=== PATIENT | female | born 1995 | race Caucasian/White ===

== ENCOUNTER 2016-09-10 21:53 | Emergency (ER) | payer MEDICAID ==
[~2016-09-10] VITALS: Ht 157.5 cm; Wt 83.6 kg
[~2016-09-10 21:53] MED LIST: ALBU90AE INH; DOCU-30 PO; FOLI1TAB47 PO; IBUP-1222 PO; MOOD STABILIZER; OXYC5CAP4 PO; PEDI18TA2 PO; PNV11TAB5 PO
[2016-09-10 21:56] VITALS: BP 119/80
[2016-09-10] MEDS ORDERED: IBUPROFEN 200 MG TABLET ONE (22:30)
[2016-09-10] MEDS ORDERED: IBUPROFEN 200 MG TABLET PO ONE (22:30)
== END 2016-09-10 23:33 | disposition home or self-care (01) ==
LOC: ED 23:08
DX: G89.29 Other chronic pain (principal); M54.6 Pain in thoracic spine
CPT/HCPCS: 72072

== ENCOUNTER 2016-09-25 22:23 | Emergency (ER) | payer MEDICAID ==
[~2016-09-25] VITALS: Ht 157.5 cm; Wt 83.1 kg
[2016-09-25 22:24] VITALS: BP 122/76
[2016-09-25] MEDS ORDERED: CYCLOBENZAPRINE 10 MG TABLET PO ONE (23:00)
[2016-09-25] MEDS ORDERED: KETOROLAC 30 MG/1 ML IM ONE (23:00)
[2016-09-25] MEDS ORDERED: KETOROLAC 30 MG/1 ML ONE (23:16)
[2016-09-25] MEDS ORDERED: CYCLOBENZAPRINE 10 MG TABLET ONE (23:16)
== END 2016-09-25 23:29 | disposition home or self-care (01) ==
LOC: ED 23:20
DX: M41.114 Juvenile idiopathic scoliosis, thoracic region (principal); K21.9 Gastro-esophageal reflux disease without esophagitis
CPT/HCPCS: 99283

== ENCOUNTER 2016-10-23 15:25 | Emergency (ER) | payer MEDICAID ==
[~2016-10-23] VITALS: Ht 157.5 cm; Wt 80.0 kg
[2016-10-23] MEDS ORDERED: PHENAZOPYRIDINE 200 MG TABLET ONE (15:48)
[2016-10-23] MEDS ORDERED: PHENAZOPYRIDINE 200 MG TABLET PO ONE (16:00)
[2016-10-23 16:18] LABS: HCG UR OBC PASS
[2016-10-23 17:30] VITALS: BP 116/78
== END 2016-10-23 17:38 | disposition home or self-care (01) ==
LOC: ED 17:32
DX: N30.90 Cystitis, unspecified without hematuria (principal)
CPT/HCPCS: 81001; 81025; 87086; 99284

== ENCOUNTER 2016-10-31 20:46 | Emergency (ER) | payer MEDICAID ==
[~2016-10-31] VITALS: Ht 157.5 cm; Wt 77.5 kg
[2016-10-31 21:37] LABS: PATH.CAST-FLAG NOT PRESENT; SPERM-FLAG NOT PRESENT; SRC-FLAG NOT PRESENT; XTAL-FLAG NOT PRESENT; YLC-FLAG NOT PRESENT
[2016-10-31 21:39] LABS: HCG UR OBC PASS
[2016-10-31 22:20] LABS: BLOOD UREA NITROGEN 12 mg/dL (7-18)
[2016-10-31] MEDS ORDERED: OMNIPAQUE 350 MG/ML, 100ML BOTTLE ONE (23:23)
[2016-10-31] MEDS ORDERED: SODIUM CHLORIDE FLUSH 10ML SYR IVF ONE (23:30)
[2016-10-31 23:31] VITALS: BP 108/69
== END 2016-11-01 00:16 | disposition home or self-care (01) ==
LOC: ED 11-01 00:15
DX: B37.3 Candidiasis of vulva and vagina (principal); K21.9 Gastro-esophageal reflux disease without esophagitis
CPT/HCPCS: 36415; 74177; 76830; 80048; 81001; 81025; 82040; 84703; 85025; 87086; 87210; 87491; 87591; 87808; 99285; Q9967

== ENCOUNTER 2016-11-09 08:57 | Emergency (ER) | payer MEDICAID ==
[~2016-11-09] VITALS: Ht 157.5 cm; Wt 82.0 kg
[2016-11-09] MEDS ORDERED: KETOROLAC 30 MG/1 ML IM ONE (09:30)
[2016-11-09] MEDS ORDERED: CYCLOBENZAPRINE 10 MG TABLET PO ONE (09:30)
[2016-11-09] MEDS ORDERED: KETOROLAC 30 MG/1 ML ONE (09:56)
[2016-11-09] MEDS ORDERED: CYCLOBENZAPRINE 10 MG TABLET ONE (09:58)
[2016-11-09] MEDS ORDERED: IBUPROFEN 200 MG TABLET ONE (10:03)
[2016-11-09] MEDS ORDERED: HYDROcodone/APAP 5/325 TABLET ONE (10:16)
[2016-11-09] MEDS ORDERED: IBUPROFEN 200 MG TABLET PO ONE (10:30)
[2016-11-09] MEDS ORDERED: HYDROcodone/APAP 5/325 TABLET PO ONE (10:30)
[2016-11-09 11:02] VITALS: BP 114/71
== END 2016-11-09 11:05 | disposition home or self-care (01) ==
LOC: ED 10:59
DX: S39.012A Strain of muscle, fascia and tendon of lower back, initial encounter (principal); V49.9XXA Car occupant (driver) (passenger) injured in unspecified traffic accident, initial encounter; Y93.89 Activity, other specified; Y92.89 Other specified places as the place of occurrence of the external cause; Y99.8 Other external cause status
CPT/HCPCS: 72110; 99284

== ENCOUNTER 2016-11-19 11:29 | Emergency (ER) | payer MEDICAID ==
[~2016-11-19] VITALS: Ht 157.5 cm; Wt 77.5 kg
[2016-11-19] MEDS ORDERED: ALBU1.25 NEB (11:37)
[2016-11-19] MEDS ORDERED: [UNRECOGNIZED DRUG - REMARK] (11:37)
[2016-11-19 12:51] VITALS: BP 117/74
== END 2016-11-19 12:53 | disposition home or self-care (01) ==
LOC: ED 12:47
DX: M54.6 Pain in thoracic spine (principal); K21.9 Gastro-esophageal reflux disease without esophagitis; J45.909 Unspecified asthma, uncomplicated; S20.219A Contusion of unspecified front wall of thorax, initial encounter; X58.XXXA Exposure to other specified factors, initial encounter; Y93.89 Activity, other specified; Y92.89 Other specified places as the place of occurrence of the external cause; Y99.8 Other external cause status
CPT/HCPCS: 71020; 72072; 93005; 99284

== ENCOUNTER 2017-02-23 02:31 | Emergency (ER) | payer MEDICAID ==
[~2017-02-23] VITALS: Ht 157.5 cm; Wt 79.4 kg
[~2017-02-23 02:31] MED LIST changes: +ALBU1.25 NEB; +DOCU-131 PO; -DOCU-30 PO; +OXYC5CAP2 PO; -OXYC5CAP4 PO; +[UNRECOGNIZED DRUG - REMARK]
[2017-02-23] MEDS ORDERED: ARIP5TAB13 PO (02:51)
[2017-02-23] MEDS ORDERED: ANTIDEPRESSANT PO (02:51)
[2017-02-23] MEDS ORDERED: DEXAMETHASONE 4 MG/ML, 1ML PO ONE (03:00)
[2017-02-23] MEDS ORDERED: DEXAMETHASONE 4 MG TABLET ONE (03:04)
[2017-02-23 04:55] VITALS: BP 114/64
== END 2017-02-23 04:57 | disposition home or self-care (01) ==
LOC: ED 02:35
DX: J02.8 Acute pharyngitis due to other specified organisms (principal); B97.89 Other viral agents as the cause of diseases classified elsewhere; K21.9 Gastro-esophageal reflux disease without esophagitis; J45.909 Unspecified asthma, uncomplicated; F17.200 Nicotine dependence, unspecified, uncomplicated
CPT/HCPCS: 71020; 87081; 87147; 87880; 99284; J1100

== ENCOUNTER 2017-02-25 18:26 | Emergency (ER) | payer MEDICAID ==
[~2017-02-25] VITALS: Ht 152.4 cm; Wt 86.0 kg
[~2017-02-25 18:26] MED LIST changes: +ANTIDEPRESSANT PO; +ARIP5TAB13 PO
[2017-02-25 18:32] VITALS: BP 113/72
[2017-02-25] MEDS ORDERED: SODIUM CHLORIDE 0.9% 1,000ML IVBOLUS ONE (19:30)
[2017-02-25] MEDS ORDERED: DEXAMETHASONE 4 MG/ML, 1ML IM ONE (19:30)
[2017-02-25] MEDS ORDERED: SODIUM CHLORIDE FLUSH 10ML SYR IVF ONE (19:30)
[2017-02-25] MEDS ORDERED: DEXAMETHASONE 4 MG/ML, 5ML ONE (19:48)
== END 2017-02-25 21:14 | disposition home or self-care (01) ==
LOC: ED 19:42
DX: J02.0 Streptococcal pharyngitis (principal); E86.0 Dehydration; K21.9 Gastro-esophageal reflux disease without esophagitis; J45.909 Unspecified asthma, uncomplicated; F31.9 Bipolar disorder, unspecified; F43.10 Post-traumatic stress disorder, unspecified
CPT/HCPCS: 96360; 96372; 99285; J1100; J7030

== ENCOUNTER 2017-04-16 01:28 | Emergency (ER) | payer MEDICAID ==
[~2017-04-16] VITALS: Ht 157.5 cm; Wt 81.3 kg
[2017-04-16 01:30] VITALS: BP 111/79
== END 2017-04-16 02:44 | disposition home or self-care (01) ==
LOC: ED 01:53
DX: B34.9 Viral infection, unspecified (principal); K21.9 Gastro-esophageal reflux disease without esophagitis
CPT/HCPCS: 71020; 93005; 99284

== ENCOUNTER 2017-05-25 21:40 | Emergency (ER) | payer MEDICAID ==
[~2017-05-25] VITALS: Ht 157.5 cm; Wt 80.1 kg
[2017-05-25 21:42] VITALS: BP 107/75
[2017-05-25] MEDS: KETOROLAC 30 MG/1 ML IM ONE ×2 (22:30→22:37)
[2017-05-25] MEDS ORDERED: KETOROLAC 30 MG/1 ML ONE (22:31)
[2017-05-25] MEDS ORDERED: IBUPROFEN 200 MG TABLET ONE (22:41)
[2017-05-25] MEDS ORDERED: DIAZEPAM 5 MG TABLET ONE (22:41)
[2017-05-25] MEDS ORDERED: DIAZEPAM 5 MG TABLET PO ONE (23:00)
[2017-05-25] MEDS ORDERED: IBUPROFEN 200 MG TABLET PO ONE (23:00)
== END 2017-05-25 23:04 | disposition home or self-care (01) ==
LOC: ED 22:58
DX: M41.115 Juvenile idiopathic scoliosis, thoracolumbar region (principal); K21.9 Gastro-esophageal reflux disease without esophagitis; F31.9 Bipolar disorder, unspecified
CPT/HCPCS: 99283; J1885

== ENCOUNTER 2017-06-13 12:38 | Emergency (ER) | payer MEDICAID ==
[~2017-06-13] VITALS: Ht 157.5 cm; Wt 79.0 kg
[2017-06-13 13:54] VITALS: BP 110/62
== END 2017-06-13 14:43 | disposition home or self-care (01) ==
LOC: ED 14:20
DX: J20.8 Acute bronchitis due to other specified organisms (principal); J00 Acute nasopharyngitis [common cold]; J45.909 Unspecified asthma, uncomplicated; M41.9 Scoliosis, unspecified
CPT/HCPCS: 71046; 93005; 99284; J7512

== ENCOUNTER 2017-12-25 01:22 | Emergency (ER) | payer MEDICAID ==
[~2017-12-25] VITALS: Ht 157.5 cm; Wt 78.0 kg
[2017-12-25 01:30] VITALS: BP 122/75
[2017-12-25] MEDS ORDERED: KETOROLAC 30 MG/1 ML ONE (01:48)
[2017-12-25] MEDS ORDERED: METHOCARBAMOL 750 MG TABLET ONE (01:48)
[2017-12-25] MEDS ORDERED: KETOROLAC 30 MG/1 ML IM ONE (02:00)
[2017-12-25] MEDS ORDERED: METHOCARBAMOL 750 MG TABLET PO ONE (02:00)
== END 2017-12-25 02:54 | disposition home or self-care (01) ==
LOC: ED 02:10
DX: G89.29 Other chronic pain (principal); M54.6 Pain in thoracic spine; M41.124 Adolescent idiopathic scoliosis, thoracic region; K21.9 Gastro-esophageal reflux disease without esophagitis; J45.909 Unspecified asthma, uncomplicated
CPT/HCPCS: 96372; 99283; J1885

== ENCOUNTER 2018-01-28 16:25 | Emergency (ER) | payer MEDICAID ==
[~2018-01-28] VITALS: Ht 157.5 cm; Wt 80.6 kg
[2018-01-28 16:31] VITALS: BP 119/76
[2018-01-28] MEDS ORDERED: KETOROLAC 30 MG/1 ML ONE (17:18)
[2018-01-28] MEDS ORDERED: KETOROLAC 30 MG/1 ML IM ONE (17:30)
== END 2018-01-28 17:49 | disposition home or self-care (01) ==
LOC: ED 17:15
DX: M41.84 Other forms of scoliosis, thoracic region (principal); M41.86 Other forms of scoliosis, lumbar region; K21.9 Gastro-esophageal reflux disease without esophagitis; F31.9 Bipolar disorder, unspecified; F41.1 Generalized anxiety disorder; F43.10 Post-traumatic stress disorder, unspecified
CPT/HCPCS: 96372; 99283; J1885

== ENCOUNTER 2018-07-23 18:56 | Emergency (ER) | payer MEDICAID ==
[~2018-07-23] VITALS: Ht 157.5 cm; Wt 88.8 kg
[2018-07-23 19:23] VITALS: BP 107/62
--- NOTE | 2018-07-23 20:00 | NUR ---
NO ANSWER FOR RME. MANAGER SITE SAID PATIENT WALKED OUTSIDE.
--- NOTE | 2018-07-23 20:05 | NUR ---
NO ANSWER FOR RME. THIS TECH WALKED OUTSIDE AND CALLED FOR PATIENT WITH NO ANSWER.
--- NOTE | 2018-07-23 20:37 | NUR ---
PT HERE FOR LOWER BACK PAIN S/P FALL ON ICE. PT REPORTS SHE SLIPPED, DENIES LOC, LOSS OF BOWEL CONROL. CMS INTACT AND ABLE TO AMBULATE.
--- NOTE | 2018-07-23 22:14 | NUR ---
Patient/Caregiver given discharge instructions and they have confirmed that they understand the instructions. Patient ambulatory with steady gait.
== END 2018-07-23 22:16 | disposition home or self-care (01) ==
LOC: ED 22:10
DX: S33.5XXA Sprain of ligaments of lumbar spine, initial encounter (principal); W01.0XXA Fall on same level from slipping, tripping and stumbling without subsequent striking against object, initial encounter; Y93.89 Activity, other specified; Y92.009 Unspecified place in unspecified non-institutional (private) residence as the place of occurrence of the external cause; Y99.8 Other external cause status
CPT/HCPCS: 72110; 72220; 99283

== ENCOUNTER 2019-06-12 09:12 | Emergency (ER) | payer MEDICAID, OTHER ==
[~2019-06-12] VITALS: Ht 157.5 cm; Wt 84.5 kg
[~2019-06-12 09:12] MED LIST changes: +ARIP2TAB2 PO; +LISD20CA4 PO
[2019-06-12 09:18] VITALS: BP 118/67
[2019-06-12] MEDS ORDERED: IBUPROFEN 600 MG TABLET PO ONE (09:30)
[2019-06-12] MEDS ORDERED: IBUPROFEN 200 MG TABLET ONE (09:34)
== END 2019-06-12 11:29 | disposition home or self-care (01) ==
LOC: ED 11:05
DX: S93.401A Sprain of unspecified ligament of right ankle, initial encounter (principal); F17.200 Nicotine dependence, unspecified, uncomplicated; J45.909 Unspecified asthma, uncomplicated; K21.9 Gastro-esophageal reflux disease without esophagitis; W19.XXXA Unspecified fall, initial encounter; Y93.89 Activity, other specified; Y92.89 Other specified places as the place of occurrence of the external cause; Y99.8 Other external cause status
CPT/HCPCS: 99283

== ENCOUNTER 2019-07-18 21:26 | Emergency (ER) | payer SELFPAY ==
[~2019-07-18] VITALS: Ht 157.5 cm; Wt 84.0 kg
[2019-07-18 21:43] VITALS: BP 117/78
--- NOTE | 2019-07-18 21:51 | NUR ---
THIS IS A 24 YO FEMALE BIB ELE FROM [facility]. PER SANT[place]HSA, PATIENT HAS BEEN DRINKING A BOTTEL A DAY FOR THE PAST FEW DAYS, TODAY PATIENT STATES "I HAD TWO SIPS OF ALCOHOL AND THREW UP AND THERE WAS A LITTLE BLOOD". PATIENT DENIES DIZZINESS, DENIES LOC, DENIES SOB/CP. PATIENT AMBULATED FROM AMBULANCE TO ROOM WITH STEADY GAIT. SPO2 AND BP MONITORING IN PLACE, VSS, NAD NOTED, CALL LIGHT IN REACH.
[2019-07-18] MEDS ORDERED: ONDANSETRON ODT 8 MG ONE (21:53)
[2019-07-18] MEDS ORDERED: FAMOTIDINE 20 MG TABLET ONE (21:53)
--- NOTE | 2019-07-18 21:55 | NUR ---
PATIENT MEDICATED PER EMAR, TOLERATED WELL. FRIEND IN ROOM.
[2019-07-18 22:00] LABS: BASOPHILS # (AUTO) 0.01 x10^3/uL (0-0.1); BASOPHILS % (AUTO) 0 % (0-1); EOSINOPHILS # (AUTO) 0.76 x10^3/uL (0-0.4); EOSINOPHILS % (AUTO) 8 % (1-7); LYMPHOCYTES # (AUTO) 2.67 x10^3/uL (1-3.4); LYMPHOCYTES % (AUTO) 26 % (22-44); MD NO; MEAN CORPUSCULAR HEMOGLOBIN 27.8 pg (27.0-34.8); MEAN PLATELET VOLUME 8.4 fL (7.4-10.4); MONOCYTES # (AUTO) 0.14 x10^3/uL (0.2-0.8); MONOCYTES % (AUTO) 1 % (2-9); NEUTROPHILS # (AUTO) 6.58 x10^3/uL (1.8-6.8); NEUTROPHILS % (AUTO) 65 % (42-75); PLATELET COUNT 283 x10^3/uL (130-400); RED BLOOD COUNT 4.79 x10^6/uL (3.82-5.3); RED CELL DISTRIBUTION WIDTH 14.3 % (9.6-15.2)
[2019-07-18] MEDS ORDERED: FAMOTIDINE 20 MG TABLET PO ONE (22:00)
[2019-07-18] MEDS ORDERED: PLEASE ENTER HEIGHT AND WEIGHT MC SCH (22:00)
[2019-07-18] MEDS ORDERED: ONDANSETRON ODT 8 MG PO PRN (22:00)
[2019-07-18 22:10] LABS: ALANINE AMINOTRANSFERASE 26 U/L (12-78); ALBUMIN 3.4 g/dL (3.4-5.0); ANION GAP 6 mmol/L (5-15); CALCIUM 8.6 mg/dL (8.5-10.1); CHLORIDE 110 mmol/L (98-107)
[2019-07-18 22:15] LABS: ALKALINE PHOSPHATASE 109 U/L (45-117); BILIRUBIN,TOTAL 0.3 mg/dL (0.2-1.0); CREATININE 0.83 mg/dL (0.55-1.02); TOTAL PROTEIN 7.1 g/dL (6.4-8.2)
== END 2019-07-18 22:47 | disposition home or self-care (01) ==
LOC: ED 22:41
DX: R11.10 Vomiting, unspecified (principal)
CPT/HCPCS: 36415; 80053; 83690; 84703; 85025; 99283; Q0162

== ENCOUNTER 2019-08-08 08:47 | Emergency (ER) | payer SELFPAY ==
[~2019-08-08] VITALS: Ht 157.5 cm; Wt 83.3 kg
--- NOTE | 2019-08-08 09:21 | NUR ---
PT HAS CO FEVER, SORE THROAT AND COUGH STARTING THIS AM. DENIES N/V. DENIES SOB, OR CHEST PAIN. COUGH IS BARKING.
[2019-08-08] MEDS ORDERED: IBUPROFEN 600 MG TABLET PO ONE (09:30)
--- NOTE | 2019-08-08 09:30 | NUR ---
GAVE PT WATER. ENCOURAGED TO VOID AND PROVIDE UA SAMPLE
[2019-08-08] MEDS ORDERED: IBUPROFEN 600 MG TABLET ONE (09:49)
[2019-08-08] MEDS ORDERED: DEXAMETHASONE 4 MG TABLET ONE (09:49)
[2019-08-08] MEDS ORDERED: DEXAMETHASONE 4 MG TABLET PO ONE (10:00)
--- NOTE | 2019-08-08 10:20 | NUR ---
MEDICATED PER ORDERS. UA SENT. NO NEEDS AT THIS TIME
[2019-08-08 10:35] LABS: HCG UR SG 1.022 (1.003-1.030); MICROSCOPIC NOT IND
[2019-08-08 10:40] LABS: CULTURE INDICATED? NO
--- NOTE | 2019-08-08 11:11 | NUR ---
Patient/Caregiver given discharge instructions and they have confirmed that they understand the instructions. Patient ambulatory with steady gait.
[2019-08-08 11:12] VITALS: BP 130/65
== END 2019-08-08 11:31 | disposition home or self-care (01) ==
LOC: ED 09:32
DX: J20.8 Acute bronchitis due to other specified organisms (principal); B97.89 Other viral agents as the cause of diseases classified elsewhere; K21.9 Gastro-esophageal reflux disease without esophagitis; F17.210 Nicotine dependence, cigarettes, uncomplicated
CPT/HCPCS: 81003; 81025; 99283

== ENCOUNTER 2019-08-10 16:23 | Emergency (ER) | payer SELFPAY ==
[~2019-08-10] VITALS: Ht 157.5 cm; Wt 86.0 kg
[2019-08-10 16:30] VITALS: BP 103/53
[2019-08-10] MEDS ORDERED: ACETAMINOPHEN 500 MG TABLET ONE (17:24)
[2019-08-10] MEDS ORDERED: ACETAMINOPHEN 500 MG TABLET PO ONE (17:30)
== END 2019-08-10 17:40 ==
LOC: ED 17:30
DX: G89.29 Other chronic pain (principal); M54.6 Pain in thoracic spine; M54.5 Low back pain; J45.909 Unspecified asthma, uncomplicated
CPT/HCPCS: 99282